=== PATIENT | female | born 1965 | race Two or more races ===

== ENCOUNTER 2021-10-12 21:33 | Emergency (ER) | payer OTHER ==
[~2021-10-12] VITALS: Ht 162.6 cm; Wt 59.0 kg
[2021-10-13] MEDS ORDERED: KETO10TA2 PO (03:10)
[2021-10-13] MEDS ORDERED: ALBUTEROL2.5 MG/3 M IH (03:10)
== END 2021-10-13 03:17 ==
LOC: ER 21:33
DX: A49.3 Mycoplasma infection, unspecified site (principal); B34.9 Viral infection, unspecified; R53.81 Other malaise; Z20.822 Contact with and (suspected) exposure to COVID-19

== ENCOUNTER 2021-10-25 05:38 | Emergency (ER) | payer OTHER ==
[~2021-10-25] VITALS: Ht 165.1 cm; Wt 59.0 kg
[~2021-10-25 05:38] MED LIST: ALBUTEROL2.5 MG/3 M IH; KETO10TA2 PO
[2021-10-25] MEDS ORDERED: NAPROXEN500 MG PO (07:54)
== END 2021-10-25 09:24 | disposition home or self-care (01) ==
LOC: ER 05:38
DX: N64.4 Mastodynia (principal)

== ENCOUNTER 2021-10-25 09:47 | Outpatient (CLI) | payer OTHER ==
[~2021-10-25 09:47] MED LIST changes: +NAPROXEN500 MG PO
== END 2021-10-25 10:05 | disposition home or self-care (01) ==
LOC: MAMO-SONO 09:47
DX: N64.4 Mastodynia (principal)